=== PATIENT | female | born 1995 | race American Indian/Alaskan Native ===

== ENCOUNTER 2020-05-14 13:25 | Emergency (ER) | payer BC ==
[2020-05-14 13:48] VITALS: BP 93/49
--- NOTE | 2020-05-14 14:06 | Event Note ---
ED Screening Note ED Screening Note: chief complaint "hangover" presents for n/v states she has had 6 episodes of vomiting states she last drank at 4 AM this morning states she drank "5 different alcohol" states she has diarrhea and abd cramping no pmhx no allergies to meds LNMP 30 days ago This initial assessment/diagnostic orders/clinical plan/treatment(s) is/are subject to change based on patients health status, clinical progression and re- assessment by fellow clinical providers in the ED. Further treatment and workup at subsequent clinical providers discretion. Patient/guardian urged not to elope from the ED as their condition may be serious if not clinically assessed and managed. Initial orders include: labs, UA
[2020-05-14 14:59] LABS: Bilirubin,Urine NEG (Negative); Blood,Urine NEG (Negative); Color,Urine Yellow (Yellow); Mucus,Urine FEW /HPF; Urobilinogen,Urine < 2.0 mg/dL (<2.0)
[2020-05-14 15:15] LABS: Hematocrit 39.3 % (30.3-42.9); Hemoglobin 13.2 gm/dl (10.1-14.3); Mean Corpuscular HGB Conc 34 % (30-34); Mean Corpuscular Volume 86 fl (79-97); Platelet Count 289 K/mm3 (140-440); Red Blood Count 4.55 M/mm3 (3.65-5.03); Red Cell Distribution Width 12.8 % (13.2-15.2)
[2020-05-14 15:32] LABS: Alanine Aminotransferase 12 units/L (7-56); Albumin 4.4 g/dL (3.9-5); BUN/Creatinine Ratio 13; Blood Urea Nitrogen 10 mg/dL (7-17); Calcium 9.2 mg/dL (8.4-10.2); Hemolysis Index 16
--- NOTE | 2020-05-14 15:33 | Emergency Department Report ---
ED General Adult HPI - General Chief complaint: Nausea/Vomiting/Diarrhea Stated complaint: NAUSEA/VOMIT Time Seen by Provider: 05/14/20 14:05 Source: patient Mode of arrival: Ambulatory Limitations: No Limitations - History of Present Illness Initial comments: 24-year-old female presenting with chief complaint of gradual onset nausea and vomiting this morning after drinking excessive alcohol last night. Reports associated epigastric discomfort specifically before vomiting, denies any other abdominal pain, diarrhea, fevers. She states that she called 911 and they gave her some medicine on the way here and now she feels better. Severity is modera te, no exacerbating factors, better with Zofran. - Related Data Previous Rx's Medication Instructions Recorded Last Taken Type Ondansetron [Zofran Odt] 4 mg PO Q8HR #12 tab.rapdis 05/14/20 Unknown Rx Promethazine [Phenergan] 25 mg PO Q6HR PRN #12 tab 05/14/20 Unknown Rx Allergies Allergy/AdvReac Type Severity Reaction Status Date / Time No Known Allergies Allergy Unverified 05/14/20 13:46 ED Review of Systems ROS: Stated complaint: NAUSEA/VOMIT Other details as noted in HPI Comment: All other systems reviewed and negative Gastrointestinal: as per HPI ED Past Medical Hx - Past Medical History Previous Medical History?: No - Surgical History Past Surgical History?: No - Social History Smoking Status: Never Smoker Substance Use Type: None - Medications Home Medications: Home Medications Medication Instructions Recorded Confirmed Last Taken Type Ondansetron [Zofran Odt] 4 mg PO Q8HR #12 tab.rapdis 05/14/20 Unknown Rx Promethazine [Phenergan] 25 mg PO Q6HR PRN #12 tab 05/14/20 Unknown Rx ED Physical Exam - General Limitations: No Limitations General appearance: alert, in no apparent distress - Head Head exam: Present: atraumatic, normocephalic - Eye Eye exam: Present: normal appearance - ENT ENT exam: Present: mucous membranes moist - Neck Neck exam: Present: normal inspection - Respiratory Respiratory exam: Present: normal lung sounds bilaterally. Absent: respiratory distress - Cardiovascular Cardiovascular Exam: Present: regular rate, normal rhythm. Absent: systolic murmur, diastolic murmur, rubs, gallop - GI/Abdominal GI/Abdominal exam: Present: soft, normal bowel sounds. Absent: distended, tenderness, guarding, rebound - Extremities Exam Extremities exam: Present: normal inspection - Back Exam Back exam: Present: normal inspection - Neurological Exam Neurological exam: Present: alert, oriented X3 - Psychiatric Psychiatric exam: Present: normal affect, normal mood - Skin Skin exam: Present: warm, dry, intact, normal color. Absent: rash ED Course Vital Signs 05/14/20 13:47 Temperature 97.9 F Pulse Rate 63 Respiratory 16 Rate Blood Pressure 93/49 [Right] O2 Sat by Pulse 98 Oximetry ED Medical Decision Making - Lab Data Result diagrams: 05/14/20 14:46 05/14/20 14:46 - Medical Decision Making Patient presenting after drinking too much alcohol reporting 6 episodes of vomiting. Exam is benign and her nausea is better after being given Zofran. Screening labs were obtained in triage and are pending. Labs stable, tolerates p.o. Stable for discharge. - Differential Diagnosis Alcoholic gastritis, pancreatitis, dehydration Critical care attestation.: If time is entered above; I have spent that time in minutes in the direct care of this critically ill patient, excluding procedure time. ED Disposition Clinical Impression: Acute alcoholic gastritis Qualifiers: Gastritis bleeding: without bleeding Qualified Code(s): K29.20 - Alcoholic gastritis without bleeding Disposition: DC-01 TO HOME OR SELFCARE Is pt being admited?: No Condition: Good Instructions: Gastritis, Adult Prescriptions: Promethazine [Phenergan] 25 mg PO Q6HR PRN #12 tab PRN Reason: Nausea Ondansetron [Zofran Odt] 4 mg PO Q8HR #12 tab.ekaterina Referrals: PRIMARY CARE, [Primary Care Provider] - 3-5 Days Time of Disposition: 15:41
[2020-05-14 20:00] LABS: Total Cells Counted 100
[2020-05-14 20:01] LABS: Platelet Estimate Consistent w Auto; RBC Morphology Normal
== END 2020-05-14 16:00 | disposition home or self-care (01) ==
LOC: ED 13:25
DX: K29.20 Alcoholic gastritis without bleeding (principal); Z79.899 Other long term (current) drug therapy
CPT/HCPCS: 36415; 80053; 81001; 83690; 84703; 85007; 85025